=== PATIENT | female | born 1945 | race Caucasian/White ===

== ENCOUNTER → 2016-09-18 | Outpatient (CLI) | payer MEDICARE, OTHER ==
[2016-09-18 16:57] LABS: HEMOGLOBIN A1b 1.8 %; HEMOGLOBIN Ao 84.2 %; HEMOGLOBIN P3 3.9 %
== END ==
LOC: CLAB 08:13
PROVIDERS: ATTEND Family Medicine Adolescent Medicine
DX: R73.02 Impaired glucose tolerance (oral) (principal)
CPT/HCPCS: 36415; 83036

== ENCOUNTER → 2017-03-19 | Outpatient (CLI) | payer MEDICARE, OTHER ==
[2017-03-19 07:28] LABS: AUTOMATED NEUTROPHIL # 3.2 TH/MM3 (1.8-7.7); BASOPHIL % 0.5 % (0.0-2.0); EOSINOPHIL # 0.2 TH/MM3 (0-0.4); EOSINOPHIL % 2.4 % (0.0-4.0); HEMATOCRIT 40.7 % (35.0-46.0); HEMO FLAGS DIFF FINAL; LYMPH % 43.8 % (9.0-44.0); LYMPHOCYTE # 3.3 TH/MM3 (1.0-4.8); MEAN CELL VOLUME 91.1 FL (80.0-100.0); MONO % 11.7 % (0.0-8.0); NEUT % 41.6 % (16.0-70.0); PLATELET COUNT 205 TH/MM3 (150-450); RED BLOOD COUNT 4.47 MIL/MM3 (4.00-5.30); RED CELL DISTRIBUTION WIDTH 13.8 % (11.6-17.2); WHITE BLOOD COUNT 7.6 TH/MM3 (4.0-11.0)
[2017-03-19 07:53] LABS: ANION GAP 8 MEQ/L (5-15); AST (GOT) 24 U/L (15-37); BICARBONATE 27.8 MEQ/L (21.0-32.0); BLOOD UREA NITROGEN 12 MG/DL (7-18); CHLORIDE 105 MEQ/L (98-107); GLOMERULAR FILTRATION RATE 72 ML/MIN (>89); GLUCOSE,FASTING 110 MG/DL (74-99); POTASSIUM 4.5 MEQ/L (3.5-5.1); SODIUM (NA) 141 MEQ/L (136-145)
[2017-03-19 07:54] LABS: BACTERIA, URINE RARE /hpf; BLOOD, URINE SMALL (NEG); GLUCOSE,URINE NEG (NEG); HYALINE CAST, URINE 4 /lpf (RARE); KETONE, URINE NEG (NEG); MUCUS URINE MANY /lpf (OCC); NITRITE,URINE NEG (NEG); PH, URINE 5.5 (5.0-8.5); SQUAMOUS EPITHELIAL CELL URINE 12 /hpf (0-5); URINE COLOR YELLOW (YELLW/STRAW)
[2017-03-19 08:03] LABS: ALKALINE PHOSPHATASE 90 U/L (45-117); ALT (GPT) 55 U/L (10-53); FREE T4 0.99 NG/DL (0.76-1.46); HDL CHOLESTEROL 43.3 MG/DL (40.0-60.0); LDL CHOLESTEROL 146 MG/DL (0-99); TOTAL BILIRUBIN ADULT 0.6 MG/DL (0.2-1.0)
[2017-03-19 14:22] LABS: HEMOGLOBIN A1b 1.7 %; HEMOGLOBIN Ao 84.5 %; HEMOGLOBIN LA1C 2.1 %; HEMOGLOBIN P3 3.9 %
== END ==
LOC: CLAB 07:03
PROVIDERS: ATTEND Family Medicine Adolescent Medicine
DX: E78.4 Other hyperlipidemia (principal); N18.9 Chronic kidney disease, unspecified; I12.9 Hypertensive chronic kidney disease with stage 1 through stage 4 chronic kidney disease, or unspecified chronic kidney disease; R73.01 Impaired fasting glucose; R53.83 Other fatigue
CPT/HCPCS: 36415; 80053; 80061; 81001; 83036; 84439; 84443; 85025